=== PATIENT | female | born 1995 | race Caucasian/White ===

== ENCOUNTER 2021-04-14 19:48 | Inpatient (IN) | payer MEDICAID ==
[~2021-04-14] VITALS: Ht 157.5 cm; Wt 95.5 kg
[2021-04-14 21:09] LABS: HEMATOCRIT 50.5 % (36.0-47.0); HEMOGLOBIN 16.6 g/dl (12.0-15.5); MEAN CORPUSCULAR HEMOGLOBIN 30.6 pg (27.0-33.0); MEAN CORPUSCULAR HGB CONC 32.9 g/dl (32.0-36.5); PLATELET COUNT, AUTOMATED 261 10^3/uL (150-450); RED BLOOD COUNT 5.43 10^6/uL (4.00-5.40); WHITE BLOOD COUNT 5.5 10^3/uL (4.0-10.0)
[2021-04-14 21:12] LABS: AMPHETAMINES LEVEL URINE NEGATIVE (NEGATIVE); BARBITURATES URINE NEGATIVE (NEGATIVE); BENZODIAZEPINES URINE NEGATIVE (NEGATIVE); CANNABINOIDS URINE NEGATIVE (NEGATIVE); COCAINE METABOLITE URINE NEGATIVE (NEGATIVE); METHADONE URINE NEGATIVE (NEGATIVE); OPIATES URINE NEGATIVE (NEGATIVE); PHENCYCLIDINE URINE NEGATIVE (NEGATIVE)
[2021-04-14 21:34] LABS: ACETAMINOPHEN LEVEL < 2.0 UG/ML (10.0-30.0); ALT/SGPT 137 U/L (12-78); BILIRUBIN,DIRECT 0.1 MG/DL (0.0-0.2); BILIRUBIN,TOTAL 0.2 MG/DL (0.2-1.0); BLOOD UREA NITROGEN 9 MG/DL (7-18); CALCIUM LEVEL 9.5 MG/DL (8.5-10.1); CARBON DIOXIDE LEVEL 24 MEQ/L (21-32); CHLORIDE LEVEL 104 MEQ/L (98-107); ETHYL ALCOHOL (ETHANOL) 0.259 % (0.000-0.010); GLOMERULAR FILTRATION RATE > 60.0 (>60); GLUCOSE, FASTING 412 MG/DL (70-100); HCG, SERUM QUALITATIVE NEGATIVE (NEGATIVE); SALICYLATE LEVEL < 1.7 MG/DL (5.0-30.0); SODIUM LEVEL 139 MEQ/L (136-145); TOTAL PROTEIN 7.6 GM/DL (6.4-8.2)
[2021-04-14] MEDS ORDERED: ACETAMINOPHEN TAB 650MG DOSE (2X325MG) PO ONE (23:25)
[2021-04-14 23:31] LABS: HEMOGLOBIN A1c 8.5 %
[2021-04-15 08:09] LABS: RSV AMPLIFICATION NEGATIVE (NEGATIVE)
[2021-04-15] MEDS ORDERED: ACETAMINOPHEN TAB 650MG DOSE (2X325MG) PO PRN (09:25)
[2021-04-15] MEDS ORDERED: MOM 30ML SUSPENSION UDC PO PRN (09:25)
[2021-04-15] MEDS ORDERED: LORazepam 2 MG TAB PO PRN (09:25)
[2021-04-15] MEDS: FOLIC ACID 1 MG TAB PO SCH (10:34)
[2021-04-15] MEDS: MULTIVITAMINS/MINERALS THERAP 1 TAB PO SCH (10:35)
[2021-04-15] MEDS: THIAMINE 100 MG TAB PO SCH ×2 (10:35→20:29)
[2021-04-15] MEDS ORDERED: FAMO20TA PO (11:11)
[2021-04-15] MEDS ORDERED: VITMTA PO (11:11)
[2021-04-15] MEDS ORDERED: HOME MED LIST COMPLETE! XX SCH (11:15)
[2021-04-15 11:50] VITALS: BP 143/85
[2021-04-15 12:32] VITALS: BP 160/96
[2021-04-15] MEDS: MAALOX 30 ML SUSP *UDC PO PRN ×2 (14:37→20:28)
[2021-04-15 17:54] VITALS: BP 136/78
[2021-04-15 20:10] VITALS: BP 144/86
[2021-04-15] MEDS: traZODone 50 MG TAB PO PRN (20:29)
[2021-04-15] MEDS ORDERED: hydrOXYzine 50 MG TAB PO ONE (20:45)
[2021-04-16 06:00] VITALS: BP 140/81
[2021-04-16] MEDS ORDERED: hydrOXYzine 25 MG TAB PO PRN (09:25)
[2021-04-16] MEDS: MULTIVITAMINS/MINERALS THERAP 1 TAB PO SCH (09:30)
[2021-04-16] MEDS: ESCITALOPRAM OXALATE 10 MG TAB (LEXAPRO) PO SCH (09:30)
[2021-04-16] MEDS: THIAMINE 100 MG TAB PO SCH ×2 (09:30→20:41)
[2021-04-16] MEDS: FOLIC ACID 1 MG TAB PO SCH (09:30)
[2021-04-16 15:56] LABS: HEPATITIS B SURFACE ANTIGEN NEGATIVE (NEGATIVE)
[2021-04-16 17:42] VITALS: BP 147/98
[2021-04-16] MEDS: metFORMIN (GLUCOPHAGE) 500MG TAB PO SCH (19:47)
[2021-04-16 20:37] VITALS: BP 147/98
[2021-04-16] MEDS: traZODone 50 MG TAB PO PRN (20:41)
[2021-04-16] MEDS: FAMOTIDINE 20 MG TAB PO SCH (20:41)
[2021-04-16 20:42] VITALS: BP 147/98
[2021-04-16] MEDS ORDERED: lisinopriL 5 MG TAB PO SCH (21:00)
[2021-04-17 06:18] VITALS: BP 122/65
[2021-04-17 06:36] VITALS: BP 122/65
[2021-04-17 08:10] VITALS: BP 122/65
[2021-04-17] MEDS ORDERED: LISI5TAB11 PO (08:40)
[2021-04-17] MEDS ORDERED: FAMO20TA PO (08:40)
[2021-04-17] MEDS ORDERED: METF500T13 PO (08:40)
[2021-04-17] MEDS ORDERED: HYDR-3363 PO (08:40)
[2021-04-17] MEDS ORDERED: LEXA1TAB PO (08:40)
[2021-04-17] MEDS: metFORMIN (GLUCOPHAGE) 500MG TAB PO SCH (08:41)
[2021-04-17] MEDS: THIAMINE 100 MG TAB PO SCH (08:41)
[2021-04-17] MEDS: MULTIVITAMINS/MINERALS THERAP 1 TAB PO SCH (08:41)
[2021-04-17] MEDS: ESCITALOPRAM OXALATE 10 MG TAB (LEXAPRO) PO SCH (08:42)
[2021-04-17] MEDS: FAMOTIDINE 20 MG TAB PO SCH (08:42)
[2021-04-17] MEDS: FOLIC ACID 1 MG TAB PO SCH (08:42)
== END 2021-04-17 13:00 | disposition home or self-care (01) | DRG 755 ==
LOC: M ED 19:48 → EDBD 19:48 → M ED INP 04-15 09:24 → M PSY 04-15 11:22
PROVIDERS: ADMIT Psychiatry & Neurology Psychiatry; ATTEND Psychiatry & Neurology Psychiatry
DX: F43.23 Adjustment disorder with mixed anxiety and depressed mood (principal); F41.1 Generalized anxiety disorder; Z81.8 Family history of other mental and behavioral disorders; I10 Essential (primary) hypertension; K21.9 Gastro-esophageal reflux disease without esophagitis; E11.9 Type 2 diabetes mellitus without complications; Z62.810 Personal history of physical and sexual abuse in childhood; E66.9 Obesity, unspecified; F10.129 Alcohol abuse with intoxication, unspecified; Z68.38 Body mass index [BMI] 38.0-38.9, adult

== ENCOUNTER 2022-02-16 12:55 | Emergency (ER) | payer MEDICAID, OTHER ==
[~2022-02-16] VITALS: Ht 157.5 cm; Wt 93.2 kg
[~2022-02-16 12:55] MED LIST: FAMO20TA PO; HYDR-3363 PO; LEXA1TAB PO; LISI5TAB11 PO; METF500T13 PO; VITMTA PO
[2022-02-16 18:47] LABS: BASO % 0.5 % (0.0-1.0); EOS # 0.1 10^3/uL (0.0-0.5); EOS % 1.4 % (0.0-3.0); HEMATOCRIT 46.9 % (36.0-47.0); HEMOGLOBIN 15.6 g/dl (12.0-15.5); LYMPH # 2.6 10^3/uL (1.5-5.0); LYMPH % 33.6 % (24.0-44.0); MEAN CORPUSCULAR HEMOGLOBIN 30.6 pg (27.0-33.0); MEAN CORPUSCULAR HGB CONC 33.3 g/dl (32.0-36.5); MEAN CORPUSCULAR VOLUME 92.1 fl (80.0-96.0); MONO # 0.5 10^3/uL (0.0-0.8); MONO % 6.2 % (2.0-8.0); NEUTROPHILS # 4.4 10^3/uL (1.5-8.5); NEUTROPHILS % 57.8 % (36.0-66.0); PLATELET COUNT, AUTOMATED 264 10^3/uL (150-450); RED BLOOD COUNT 5.09 10^6/uL (4.00-5.40); WHITE BLOOD COUNT 7.7 10^3/uL (4.0-10.0)
[2022-02-16 19:01] LABS: INR 0.93; PROTHROMBIN TIME 12.7 SECONDS (12.5-14.5)
[2022-02-16 19:02] LABS: PARTIAL THROMBOPLASTIN TIME 28.8 SECONDS (24.8-34.2)
[2022-02-16 19:29] LABS: LIPASE 24 U/L (12-53)
[2022-02-16 19:30] LABS: BILIRUBIN,DIRECT 0.3 MG/DL (<0.4)
[2022-02-16 19:31] LABS: ALBUMIN 4.1 G/DL (3.2-5.2); ALKALINE PHOSPHATASE 117 U/L (46-116); ALT/SGPT 81 U/L (7.0-40); AST/SGOT 118 U/L (<34); TOTAL PROTEIN 7.6 G/DL (5.7-8.2)
[2022-02-16 19:32] LABS: BLOOD UREA NITROGEN 10 MG/DL (9-23); CALCIUM LEVEL 8.8 MG/DL (8.5-10.1); CARBON DIOXIDE LEVEL 22 MMOL/L (20-31); CHLORIDE LEVEL 104 MMOL/L (98-107); CREATININE FOR GFR 0.42 MG/DL (0.55-1.30); GLOMERULAR FILTRATION RATE > 60.0 (>60); GLUCOSE, FASTING 148 MG/DL (60-100); POTASSIUM SERUM 4.3 MMOL/L (3.5-5.1); SODIUM LEVEL 137 MMOL/L (136-145)
[2022-02-16 19:52] LABS: HCG, SERUM QUANTITATIVE < 2.6 MIU/ML (<4.2)
[2022-02-16] MEDS ORDERED: ISOVUE-370 76% 100ML VIAL As Ordered ONE (20:16)
[2022-02-16 20:45] VITALS: BP 156/95
[2022-02-16 20:54] LABS: HEPATITIS B SURFACE ANTIGEN NEGATIVE (NEGATIVE)
[2022-02-16 21:13] LABS: HEPATITIS C VIRUS ABY INDEX 0.1 INDEX (<0.8)
[2022-02-16 21:14] LABS: HEPATITIS B CORE ANTIBODY IGM NEGATIVE (NEGATIVE)
[2022-02-16] MEDS ORDERED: PROT1TAB2 PO (21:18)
== END 2022-02-16 22:28 | disposition home or self-care (01) ==
LOC: M ED 12:55
DX: K62.5 Hemorrhage of anus and rectum (principal); R10.13 Epigastric pain; K76.0 Fatty (change of) liver, not elsewhere classified; F10.10 Alcohol abuse, uncomplicated; R74.01 Elevation of levels of liver transaminase levels; E11.9 Type 2 diabetes mellitus without complications; I10 Essential (primary) hypertension; Z79.84 Long term (current) use of oral hypoglycemic drugs; Z88.8 Allergy status to other drugs, medicaments and biological substances; Z79.4 Long term (current) use of insulin; Z79.899 Other long term (current) drug therapy

== ENCOUNTER → 2022-05-04 | Outpatient (REF) | payer OTHER ==
[~2022-05-04] MED LIST changes: +PROT1TAB2 PO
== END ==
LOC: M LAB REF 17:18
PROVIDERS: ATTEND Nurse Practitioner Family
DX: R19.7 Diarrhea, unspecified (principal)

== ENCOUNTER 2022-06-15 06:28 | Day surgery (SDC) | payer OTHER ==
[~2022-06-15] VITALS: Ht 157.5 cm; Wt 82.5 kg
[~2022-06-15 06:28] MED LIST changes: +FAMO1TAB11 PO; +GABA-1171 PO; +LOSA25TA13 PO; +METF10004 PO; +NS 1,000 ML IV ONE; +PANT20TA6 PO; +PRAV40TA2 PO
[2022-06-15] MEDS ORDERED: propofoL 200 MG/20 ML VIAL As Ordered ONE ×2 (07:03→09:24)
[2022-06-15] MEDS ORDERED: LIDOCAINE 2% 100MG/5ML SDV (FOR ANES.) As Ordered ONE (07:03)
[2022-06-15] MEDS ORDERED: fentaNYL 100 MCG/2 ML INJECTION As Ordered ONE (07:25)
[2022-06-15 08:30] VITALS: BP 141/96
== END 2022-06-15 08:53 | disposition home or self-care (01) ==
LOC: M OPP 06:28
PROVIDERS: ATTEND Internal Medicine Gastroenterology
DX: K64.4 Residual hemorrhoidal skin tags (principal); K64.8 Other hemorrhoids; K92.1 Melena; K21.00 Gastro-esophageal reflux disease with esophagitis, without bleeding; K29.70 Gastritis, unspecified, without bleeding; E11.9 Type 2 diabetes mellitus without complications; J45.909 Unspecified asthma, uncomplicated; K76.0 Fatty (change of) liver, not elsewhere classified; I10 Essential (primary) hypertension; Z79.02 Long term (current) use of antithrombotics/antiplatelets; Z79.84 Long term (current) use of oral hypoglycemic drugs; Z79.891 Long term (current) use of opiate analgesic; Z79.899 Other long term (current) drug therapy; Z88.8 Allergy status to other drugs, medicaments and biological substances; Z80.1 Family history of malignant neoplasm of trachea, bronchus and lung; Z83.79 Family history of other diseases of the digestive system
CPT/HCPCS: 43239; 45380; 88305; J3010

== ENCOUNTER 2023-08-03 09:23 | Emergency (ER) | payer OTHER ==
[~2023-08-03] VITALS: Ht 157.5 cm; Wt 81.0 kg
[~2023-08-03 09:23] MED LIST changes: -NS 1,000 ML IV ONE
[2023-08-03 11:55] LABS: BASO # 0.1 10^3/uL (0.0-0.2); BASO % 0.9 % (0.0-1.0); EOS # 0.1 10^3/uL (0.0-0.5); EOS % 1.3 % (0.0-3.0); HEMATOCRIT 55.2 % (36.0-47.0); HEMOGLOBIN 18.2 g/dl (12.0-15.5); LYMPH % 31.2 % (24.0-44.0); MEAN CORPUSCULAR HEMOGLOBIN 30.5 pg (27.0-33.0); MEAN CORPUSCULAR VOLUME 92.6 fl (80.0-96.0); MONO # 0.4 10^3/uL (0.0-0.8); MONO % 5.7 % (2.0-8.0); NEUTROPHILS # 3.8 10^3/uL (1.5-8.5); NEUTROPHILS % 60.6 % (36.0-66.0); PLATELET COUNT, AUTOMATED 251 10^3/uL (150-450); RED BLOOD COUNT 5.96 10^6/uL (4.00-5.40); WHITE BLOOD COUNT 6.3 10^3/uL (4.0-10.0)
[2023-08-03 11:57] LABS: INR 1.1; PROTHROMBIN TIME 13.9 SECONDS (12.5-14.5)
[2023-08-03 12:01] LABS: ETHYL ALCOHOL (ETHANOL) < 0.003 % (0.000-0.010)
[2023-08-03 12:03] LABS: BLOOD UREA NITROGEN 8 MG/DL (9-23); CALCIUM LEVEL 9.3 MG/DL (8.5-10.1); CARBON DIOXIDE LEVEL 26 MMOL/L (20-31); CHLORIDE LEVEL 101 MMOL/L (98-107); CK-MB VALUE MASS < 1.0 NG/ML (<3.6); CREATININE FOR GFR 0.38 MG/DL (0.55-1.30); GLOMERULAR FILTRATION RATE > 60.0 (>60); GLUCOSE, FASTING 203 MG/DL (60-100); POTASSIUM SERUM 3.8 MMOL/L (3.5-5.1); SODIUM LEVEL 137 MMOL/L (136-145)
[2023-08-03 12:06] LABS: THYROID STIMULATING HORMONE 0.734 uIU/ML (0.55-4.78)
[2023-08-03 12:07] LABS: CPK CREATINE PHOSPHOKINASE 57 U/L (34-145); MB/CK RELATIVE INDEX 1.75 (< OR =4)
[2023-08-03 12:17] LABS: HCG, SERUM QUALITATIVE NEGATIVE (NEGATIVE)
[2023-08-03 12:18] VITALS: BP 138/85
[2023-08-03] MEDS: LOSARTAN 25 MG TAB PO ONE (12:18)
[2023-08-03] MEDS: ASPIRIN 81MG CHEW TABLET PO ONE (12:19)
[2023-08-03] MEDS ORDERED: LOSA25TA13 PO (12:59)
[2023-08-03] MEDS ORDERED: METF-877 PO (12:59)
[2023-08-03 13:21] VITALS: BP 165/99; TEMP 98.1; O2SAT 99
== END 2023-08-03 13:23 | disposition home or self-care (01) ==
LOC: M ED 09:23
DX: I10 Essential (primary) hypertension (principal); E11.65 Type 2 diabetes mellitus with hyperglycemia; I45.19 Other right bundle-branch block; Z88.8 Allergy status to other drugs, medicaments and biological substances; Z79.84 Long term (current) use of oral hypoglycemic drugs; Z79.899 Other long term (current) drug therapy

== ENCOUNTER 2023-08-09 14:20 | Emergency (ER) | payer OTHER ==
[~2023-08-09] VITALS: Ht 157.5 cm; Wt 82.7 kg
[~2023-08-09 14:20] MED LIST changes: +METF-877 PO
[2023-08-09 19:39] VITALS: BP 168/98; TEMP 97.9; O2SAT 100
== END 2023-08-09 22:33 | disposition left against medical advice (07) ==
LOC: M ED 14:20
DX: Z53.21 Procedure and treatment not carried out due to patient leaving prior to being seen by health care provider (principal)

== ENCOUNTER → 2023-10-19 | Outpatient (REF) | payer OTHER, BC ==
[2023-10-19 17:47] LABS: CREATININE, URINE 159.4 MG/DL; MAU/CREAT RATIO 8.7 MCG/MG (0.0-30.0)
[2023-10-19 18:05] LABS: ALBUMIN 4.4 G/DL (3.2-5.2); ALKALINE PHOSPHATASE 135 U/L (46-116); ALT/SGPT 137 U/L (7.0-40); AST/SGOT 101 U/L (<34); BILIRUBIN,TOTAL 0.8 MG/DL (0.3-1.2); BLOOD UREA NITROGEN 10 MG/DL (9-23); CALCIUM LEVEL 8.9 MG/DL (8.5-10.1); CARBON DIOXIDE LEVEL 29 MMOL/L (20-31); CHLORIDE LEVEL 103 MMOL/L (98-107); CHOLESTEROL LEVEL 203 MG/DL (<200); GLOMERULAR FILTRATION RATE > 60.0 (>60); GLUCOSE, FASTING 125 MG/DL (60-100); HDL CHOLESTEROL 67.6 MG/DL (>40); LDL CHOLESTEROL 97.4 MG/DL (<100); NON-HDL-C 135.4 MG/DL; POTASSIUM SERUM 3.9 MMOL/L (3.5-5.1); SODIUM LEVEL 137 MMOL/L (136-145); TOTAL PROTEIN 7.8 G/DL (5.7-8.2); TRIGLYCERIDES LEVEL 190 MG/DL (<150)
[2023-10-19 18:06] LABS: THYROID STIMULATING HORMONE 0.679 uIU/ML (0.55-4.78)
[2023-10-19 18:07] LABS: TOTAL 25(OH) VITAMIN D 10.7 NG/ML (20.0-100.0)
[2023-10-19 19:03] LABS: HEMOGLOBIN A1c 6.3 % (4.0-6.0)
== END ==
LOC: M LAB REF 16:17
PROVIDERS: ATTEND Physician Assistant
DX: I10 Essential (primary) hypertension (principal); E11.9 Type 2 diabetes mellitus without complications; E55.9 Vitamin D deficiency, unspecified

== ENCOUNTER → 2023-11-01 | Outpatient (REF) | payer OTHER, BC ==
[2023-11-01 20:12] LABS: HEPATITIS B SURFACE ANTIGEN NEGATIVE (NEGATIVE)
[2023-11-01 20:34] LABS: HEPATITIS B CORE ANTIBODY IGM NEGATIVE (NEGATIVE); HEPATITIS C VIRUS ABY INDEX < 0.02 INDEX (<0.8)
== END ==
LOC: M LAB REF 16:13
PROVIDERS: ATTEND Physician Assistant
DX: R74.01 Elevation of levels of liver transaminase levels (principal)

== ENCOUNTER → 2023-12-23 | Outpatient (CLI) | payer BC, OTHER | LOC: M RAD 09:50 | PROVIDERS: ATTEND Physician Assistant | DX: R74.01 Elevation of levels of liver transaminase levels (principal); K76.0 Fatty (change of) liver, not elsewhere classified ==

== ENCOUNTER → 2024-01-10 | Outpatient (REF) | payer BC, OTHER ==
[~2024-01-10] MED LIST changes: +DOXY100C82 PO; +EMTR1TAB16 PO; +RALT40TA PO
[2024-01-10 14:24] LABS: ALBUMIN 3.7 G/DL (3.2-5.2); BILIRUBIN,DIRECT 0.4 MG/DL (<0.4); BILIRUBIN,TOTAL 1.3 MG/DL (0.3-1.2); TOTAL PROTEIN 7.1 G/DL (5.7-8.2)
[2024-01-10 14:54] LABS: HEMOGLOBIN A1c 6.3 % (4.0-6.0)
== END ==
LOC: M LAB REF 13:04
PROVIDERS: ATTEND Physician Assistant
DX: R74.01 Elevation of levels of liver transaminase levels (principal)

== ENCOUNTER 2024-01-12 00:19 | Emergency (ER) | payer OTHER, BC ==
[~2024-01-12] VITALS: Ht 157.5 cm; Wt 76.5 kg
[~2024-01-12 00:19] MED LIST changes: -DOXY100C82 PO; -EMTR1TAB16 PO; +EMTRICITABINE/TENOFOVIR 200MG/300MG TABLET PO SCH; -RALT40TA PO; +RALTEGRAVIR 400 MG TAB (ISENTRESS) PO SCH
[2024-01-12 03:38] LABS: BASO % 0.6 % (0.0-1.0); EOS % 0.8 % (0.0-3.0); HEMATOCRIT 44.4 % (36.0-47.0); HEMOGLOBIN 15.6 g/dl (12.0-15.5); LYMPH # 2.1 10^3/uL (1.5-5.0); LYMPH % 40.8 % (24.0-44.0); MEAN CORPUSCULAR HEMOGLOBIN 32.4 pg (27.0-33.0); MEAN CORPUSCULAR HGB CONC 35.1 g/dl (32.0-36.5); MEAN CORPUSCULAR VOLUME 92.1 fl (80.0-96.0); MONO # 0.3 10^3/uL (0.0-0.8); MONO % 6.4 % (2.0-8.0); NEUTROPHILS # 2.6 10^3/uL (1.5-8.5); NEUTROPHILS % 50.8 % (36.0-66.0); PLATELET COUNT, AUTOMATED 365 10^3/uL (150-450); RED BLOOD COUNT 4.82 10^6/uL (4.00-5.40); WHITE BLOOD COUNT 5.1 10^3/uL (4.0-10.0)
[2024-01-12 04:33] LABS: APPEARANCE, URINE HAZY (CLEAR); BACTERIA, URINE AUTO NEGATIVE (NEGATIVE); BILIRUBIN, URINE AUTO NEGATIVE (NEGATIVE); BLOOD, URINE BLOOD NEGATIVE (NEGATIVE); COLOR, URINE YELLOW (YELLOW); GLUCOSE, URINE (UA) AUTO 1+ mg/dL (NEGATIVE); KETONE, URINE AUTO TRACE mg/dL (NEGATIVE); LEUKOCYTE ESTERASE, URINE AUTO NEGATIVE (NEGATIVE); MUCUS, URINE SMALL (NEGATIVE); NITRITE, URINE AUTO NEGATIVE (NEGATIVE); PROTEIN, URINE AUTO NEGATIVE (NEGATIVE); RBC, URINE AUTO 0 /HPF (0-3); SPECIFIC GRAVITY URINE AUTO 1.015 (1.002-1.035); SQUAMOUS EPITHELIAL CELL UR AU 2 /HPF (0-6); UROBILINOGEN, URINE AUTO 0.2 mg/dL (0.0-2.0); WBC, URINE AUTO 0 /HPF (0-3)
[2024-01-12 04:41] LABS: ALKALINE PHOSPHATASE 93 U/L (35-104); ALT/SGPT 32 U/L (7.0-40); AST/SGOT 21 U/L (<34); BILIRUBIN,TOTAL 0.3 MG/DL (0.3-1.2); BLOOD UREA NITROGEN 6 MG/DL (9-23); CALCIUM LEVEL 10.3 MG/DL (8.5-10.1); CARBON DIOXIDE LEVEL 19 MMOL/L (20-31); CHLORIDE LEVEL 105 MMOL/L (98-107); CREATININE FOR GFR 0.38 MG/DL (0.55-1.30); GLOMERULAR FILTRATION RATE > 60.0 (>60); GLUCOSE, FASTING 130 MG/DL (60-100); HEPATITIS B SURFACE ANTIBODY NEGATIVE (POSITIVE); HEPATITIS B SURFACE ANTIGEN NEGATIVE (NEGATIVE); HEPATITIS C VIRUS ABY INDEX < 0.02 INDEX (<0.8); HIV 1&2 SCREEN NEGATIVE (NEGATIVE); POTASSIUM SERUM 4.2 MMOL/L (3.5-5.1); SODIUM LEVEL 139 MMOL/L (136-145); TOTAL PROTEIN 7.5 G/DL (5.7-8.2)
[2024-01-12] MEDS ORDERED: EXPOSURE KIT-ADULT 7 DAY SUPPLY PO ONE (05:25)
[2024-01-12 05:31] LABS: Trichomonas vaginalis (AMP) NOT DETECTED (NEGATIVE)
[2024-01-12] MEDS ORDERED: EMTR1TAB16 PO (05:37)
[2024-01-12] MEDS ORDERED: DOXY100C82 PO (05:37)
[2024-01-12] MEDS ORDERED: RALT40TA PO (05:37)
[2024-01-12 05:42] LABS: HCG, SERUM QUALITATIVE NEGATIVE (NEGATIVE)
[2024-01-12 05:55] LABS: GC DNA AMPLIFICATION NEGATIVE (NEGATIVE)
[2024-01-12] MEDS: RALTEGRAVIR 400 MG TAB (ISENTRESS) PO ONE (06:01)
[2024-01-12] MEDS: DOXYCYCLINE HYCLATE 100MG TABLET PO ONE (06:02)
[2024-01-12] MEDS: AZITHROMYCIN 250MG TABLET PO ONE (06:02)
[2024-01-12] MEDS: EMTRICITABINE/TENOFOVIR 200MG/300MG TABLET PO ONE (06:02)
[2024-01-12] MEDS: ULIPRISTAL ACETATE 30MG TAB (ELLA) PO ONE (06:13)
[2024-01-12] MEDS: metroNIDAZOLE (FLAGYL) 500MG TABLET PO ONE (06:19)
[2024-01-12] MEDS: cefTRIAXone 500MG VIAL IM ONE (06:20)
[2024-01-12] MEDS: LIDOCAINE 1% SDV 5ML VIAL DILUENT ONE (06:25)
[2024-01-12 06:50] VITALS: BP 153/89; TEMP 98.5; O2SAT 99
== END 2024-01-12 07:06 | disposition home or self-care (01) ==
LOC: M ED 00:19
DX: T76.21XA Adult sexual abuse, suspected, initial encounter (principal); Z79.899 Other long term (current) drug therapy; Z88.8 Allergy status to other drugs, medicaments and biological substances
CPT/HCPCS: 80053; 81001; 84703; 85025; 86706; 86780; 86803; 87340; 87389; 87661; 87810; 87850; 96372; 99283; J0696

== ENCOUNTER 2024-03-13 21:40 | Emergency (ER) | payer BC, OTHER ==
[~2024-03-13] VITALS: Ht 162.6 cm; Wt 77.5 kg
[~2024-03-13 21:40] MED LIST changes: +DOXY100C82 PO; +EMTR1TAB16 PO; -EMTRICITABINE/TENOFOVIR 200MG/300MG TABLET PO SCH; +RALT40TA PO; -RALTEGRAVIR 400 MG TAB (ISENTRESS) PO SCH
[2024-03-13 22:31] LABS: HEMATOCRIT 47.4 % (36.0-47.0); HEMOGLOBIN 16.5 g/dl (12.0-15.5); MEAN CORPUSCULAR HEMOGLOBIN 32.3 pg (27.0-33.0); MEAN CORPUSCULAR HGB CONC 34.8 g/dl (32.0-36.5); MEAN CORPUSCULAR VOLUME 92.8 fl (80.0-96.0); PLATELET COUNT, AUTOMATED 312 10^3/uL (150-450); RED BLOOD COUNT 5.11 10^6/uL (4.00-5.40); WHITE BLOOD COUNT 6.2 10^3/uL (4.0-10.0)
[2024-03-13 23:00] LABS: ETHYL ALCOHOL (ETHANOL) 0.273 % (0.000-0.010)
[2024-03-13 23:01] LABS: ALBUMIN 4.2 G/DL (3.2-5.2); ALKALINE PHOSPHATASE 111 U/L (35-104); ALT/SGPT 32 U/L (7.0-40); AST/SGOT 26 U/L (<34); BILIRUBIN,DIRECT < 0.1 MG/DL (<0.4); BILIRUBIN,TOTAL 0.2 MG/DL (0.3-1.2); BLOOD UREA NITROGEN 11 MG/DL (9-23); CALCIUM LEVEL 9.8 MG/DL (8.5-10.1); CARBON DIOXIDE LEVEL 25 MMOL/L (20-31); CHLORIDE LEVEL 105 MMOL/L (98-107); CREATININE FOR GFR 0.38 MG/DL (0.55-1.30); GLOMERULAR FILTRATION RATE > 60.0 (>60); GLUCOSE, FASTING 284 MG/DL (60-100); SALICYLATE LEVEL < 3.0 MG/DL (<30); SODIUM LEVEL 144 MMOL/L (136-145)
[2024-03-13 23:03] LABS: THYROID STIMULATING HORMONE 0.795 uIU/ML (0.55-4.78)
[2024-03-13 23:17] LABS: HCG, SERUM QUALITATIVE NEGATIVE (NEGATIVE)
[2024-03-13 23:23] LABS: AMPHETAMINES LEVEL URINE NEGATIVE (NEGATIVE)
[2024-03-13 23:24] LABS: BARBITURATES URINE NEGATIVE (NEGATIVE); BENZODIAZEPINES URINE NEGATIVE (NEGATIVE); CANNABINOIDS URINE NEGATIVE (NEGATIVE); COCAINE METABOLITE URINE NEGATIVE (NEGATIVE); METHADONE URINE NEGATIVE (NEGATIVE); OPIATES URINE NEGATIVE (NEGATIVE); PHENCYCLIDINE URINE NEGATIVE (NEGATIVE)
[2024-03-14 00:26] LABS: GC DNA AMPLIFICATION NEGATIVE (NEGATIVE)
[2024-03-14 02:34] LABS: HEPATITIS B SURFACE ANTIBODY NEGATIVE (POSITIVE)
[2024-03-14 02:45] LABS: HEPATITIS B SURFACE ANTIGEN NEGATIVE (NEGATIVE)
[2024-03-14 02:58] LABS: HIV 1&2 SCREEN NEGATIVE (NEGATIVE)
[2024-03-14 03:06] LABS: HEPATITIS C VIRUS ABY INDEX < 0.02 INDEX (<0.8)
[2024-03-14 06:06] VITALS: BP 132/86; TEMP 97.4; O2SAT 100
[2024-03-14] MEDS ORDERED: HYDR-3363 PO (08:08)
[2024-03-14] MEDS ORDERED: METF-838 PO (08:08)
[2024-03-14] MEDS ORDERED: LEXA1TAB2 PO (08:08)
[2024-03-14] MEDS ORDERED: metFORMIN XR 500MG TAB *GLUCOPHAGE XR PO SCH (09:00)
== END 2024-03-14 12:14 | disposition home or self-care (01) ==
LOC: M ED 21:40
DX: F10.14 Alcohol abuse with alcohol-induced mood disorder (principal); F32.A Depression, unspecified; F41.9 Anxiety disorder, unspecified; E11.9 Type 2 diabetes mellitus without complications; Y90.8 Blood alcohol level of 240 mg/100 ml or more; Z11.3 Encounter for screening for infections with a predominantly sexual mode of transmission

== ENCOUNTER 2024-07-11 23:02 | Emergency (ER) | payer BC, OTHER ==
[~2024-07-11] VITALS: Ht 157.5 cm; Wt 98.3 kg
[~2024-07-11 23:02] MED LIST changes: +DOXY-442 PO; -DOXY100C82 PO; +LEXA1TAB2 PO; +METF-838 PO
[2024-07-11 23:04] VITALS: BP 143/96; TEMP 99; O2SAT 99
== END 2024-07-11 23:43 | disposition left against medical advice (07) ==
LOC: M ED 23:02
DX: Z53.21 Procedure and treatment not carried out due to patient leaving prior to being seen by health care provider (principal)

== ENCOUNTER → 2024-07-18 | Outpatient (CLI) | payer BC | LOC: M OUTALCOH 07:23 | PROVIDERS: ATTEND Psychiatry & Neurology Psychiatry | DX: F10.20 Alcohol dependence, uncomplicated (principal) ==

== ENCOUNTER 2024-10-02 15:50 | Outpatient (RCR) | payer BC ==
[~2024-10-02 15:50] MED LIST changes: -PRAV40TA2 PO; +PRAV40TA85 PO
== END 2024-10-05 ==
LOC: M OUTALCOH 15:50
PROVIDERS: ATTEND Psychiatry & Neurology Psychiatry
DX: F10.20 Alcohol dependence, uncomplicated (principal)

== ENCOUNTER → 2024-10-16 | Outpatient (CLI) | payer BC, MEDICAID | LOC: M WHC 12:45 | PROVIDERS: ATTEND Physician Assistant | DX: R10.2 Pelvic and perineal pain (principal); N83.12 Corpus luteum cyst of left ovary ==

== ENCOUNTER → 2024-11-01 | Outpatient (REF) | payer MEDICAID ==
[2024-11-01 15:05] LABS: BASO # 0.1 10^3/uL (0.0-0.2); BASO % 0.9 % (0.0-1.0); EOS # 0.1 10^3/uL (0.0-0.5); EOS % 1.7 % (0.0-3.0); LYMPH # 2.2 10^3/uL (1.5-5.0); LYMPH % 36.6 % (24.0-44.0); MONO # 0.4 10^3/uL (0.0-0.8); MONO % 6.8 % (2.0-8.0); NEUTROPHILS # 3.2 10^3/uL (1.5-8.5); NEUTROPHILS % 53.7 % (36.0-66.0); PLATELET COUNT, AUTOMATED 298 10^3/uL (150-450)
[2024-11-01 15:11] LABS: ERYTHROCYTE SEDIMENTATION RATE 8 mm/hr (0-20)
[2024-11-01 15:17] LABS: FREE T4 1.36 NG/DL (0.89-1.76)
[2024-11-01 15:18] LABS: VITAMIN B12 LEVEL 519 PG/ML (211-911)
[2024-11-01 15:35] LABS: ESTIMATED AVERAGE GLUCOSE 194.0 MG/DL (60-110)
[2024-11-01 15:38] LABS: ALT/SGPT 27 U/L (7.0-40); AST/SGOT 17 U/L (<34); CALCIUM LEVEL 9.0 MG/DL (8.5-10.1); CARBON DIOXIDE LEVEL 29 MMOL/L (20-31); CHLORIDE LEVEL 100 MMOL/L (98-107); CREATININE FOR GFR 0.44 MG/DL (0.55-1.30); GLOMERULAR FILTRATION RATE > 90.0 (>60); MAGNESIUM LEVEL 1.4 MG/DL (1.8-2.4); POTASSIUM SERUM 4.9 MMOL/L (3.5-5.1); SODIUM LEVEL 140 MMOL/L (136-145)
== END ==
LOC: M LAB REF 14:31
PROVIDERS: ATTEND Physician Assistant
DX: R51.9 Headache, unspecified (principal)

== ENCOUNTER 2024-11-27 16:00 | Outpatient (RCR) | payer MEDICAID | END 2024-12-05 | LOC: M OUTALCOH 16:00 | PROVIDERS: ATTEND Psychiatry & Neurology Psychiatry | DX: F10.20 Alcohol dependence, uncomplicated (principal) ==

== ENCOUNTER → 2025-01-04 | Outpatient (CLI) | payer OTHER | LOC: M RAD 16:02 | PROVIDERS: ATTEND Physician Assistant | DX: M79.671 Pain in right foot (principal); M79.672 Pain in left foot ==